=== PATIENT | male | born 1980 | race American Indian/Alaskan Native ===

== ENCOUNTER 2018-09-05 22:28 | Emergency (ER) | payer SELFPAY ==
[2018-09-05 22:31] VITALS: BP 146/84; PULSE 70; RESP 16; TEMP 97.7; O2SAT 100
--- NOTE | 2018-09-05 23:21 | ED PDOC ---
HPI: Psych/Substance Abuse Time Seen by Provider: 09/05/18 22:45 Chief Complaint (Nursing): Alcohol Ingestion Chief Complaint (Provider): Alcohol Ingestion ED Caveat: Intoxicated History Per: Patient History/Exam Limitations: intoxication Modifying Factor(s): Alcohol Additional Complaint(s): 38 y/o male was brought to the ED for alcohol intoxication. Patient was brought by ambulance to the ED for public intoxication. [place] and sleeping and wasn't arousable. Patient admits to drinking. Denies any medical complaints. Past Medical History Reviewed: Historical Data, Nursing Documentation, Vital Signs Vital Signs: Last Vital Signs Temp 97.7 F 09/05/18 22:30 Pulse 70 09/05/18 22:30 Resp 16 09/05/18 22:30 BP 146/84 09/05/18 22:30 Pulse Ox 100 09/05/18 22:30 - Medical History PMH: No Chronic Diseases - Surgical History Surgical History: No Surg Hx - Family History Family History: States: No Known Family Hx - Allergies Allergies/Adverse Reactions: Allergies Allergy/AdvReac Type Severity Reaction Status Date / Time shellfish derived Allergy RASH Verified 09/05/18 22:31 Review of Systems Review Of Systems: ROS cannot be obtained secondary to pt's inabilty to answer questions. (intoxicated) Physical Exam - Reviewed Nursing Documentation Reviewed: Yes Vital Signs Reviewed: Yes - Physical Exam Appears: Positive for: Well, Non-toxic, No Acute Distress Head Exam: Positive for: ATRAUMATIC, NORMAL INSPECTION, NORMOCEPHALIC Skin: Positive for: Normal Color, Warm, DRY Eye Exam: Positive for: Normal appearance, EOMI, PERRL ENT: Positive for: Normal ENT Inspection Neck: Positive for: Normal, Painless ROM Cardiovascular/Chest: Positive for: Regular Rate, Rhythm Respiratory: Negative for: Respiratory Distress Extremity: Positive for: Normal ROM. Negative for: Deformity Neurological/Psych: Positive for: Awake, Alert, Normal Tone, Mood/Affect (intox icated), Gait (unsteady), Other (slurred speech) - ECG O2 Sat by Pulse Oximetry: 100 (RA) Pulse Ox Interpretation: Normal Medical Decision Making Medical Decision Making: Time:23:01 Initial Impression:alcohol intoxication. Will monitor for clinical sobriety Initial Plan: * Alcohol serum 00:00 Patient care endorsed to Dr. Menendez pending clinical sobriety. Scribe Attestation: Documented by Darnell Esquivel, acting as a scribe forDr. Francisca Mcclellan MD. Provider Scribe Attestation: All medical record entries made by the Scribe were at my direction and per sonally dictated by me. I have reviewed the chart and agree that the record accurately reflects my personal performance of the history, physical exam, medical decision making, and the department course for this patient. I have also personally directed, reviewed, and agree with the discharge instructions and disposition. Disposition - Clinical Impression Clinical Impression: Alcohol use - Patient ED Disposition Is Patient to be Admitted: Transfer of Care - Disposition Disposition: Transfer of Care Disposition Time: 00:00 Condition: STABLE Additional Instructions: EARLINE CONWAY, thank you for letting us take care of you today. Your provider was Patrick Menendez MD and you were treated for ETOH. The emergency medical care you received today was directed at your acute symptoms. If you were prescribed any medication, please fill it and take as directed. It may take several days for your symptoms to resolve. Return to the Emergency Department if your symptoms worsen, do not improve, or if you have any other problems. Please contact your doctor or call one of the physicians/clinics you have been referred to that are listed on the Patient Visit Information form that is included in your discharge packet. Bring any paperwork you were given at discharge with you along with any medications you are taking to your follow up visit. Our treatment cannot replace ongoing medical care by a primary care provider outside of the emergency department. Thank you for allowing the [facility] team to be part of your care today. If you had an X-Ray or CT scan: A Radiologist will review the ED reading if any change in treatment is needed we will contact you. If you had a blood, urine, or wound culture: It will take several days for the results, if any change in treatment is needed we will contact you. If you had an STI test: It will take 48 hours for the results. Please call after 1 week if you have not heard back. Instructions: Alcohol Use - When Is Drinking a Problem? Forms: [employer] (Lao) Patient Signed Over To: Patrick Menendez
--- NOTE | 2018-09-06 00:13 | ED PDOC ---
- ECG O2 Sat by Pulse Oximetry: 100 (RA) Pulse Ox Interpretation: Normal Medical Decision Making Medical Decision Making: Time:00:00 Patient care endorsed from Dr. Mcclellan to provider pending clinical sobriety. 00:40 Patient clinically sober for discharge. Diagnosis is alcohol abuse. Scribe Attestation: Documented by Darnell Esquivel, acting as a scribe forDr. Patrick Menendez MD Provider Scribe Attestation: All medical record entries made by the Scribe were at my direction and personally dictated by me. I have reviewed the chart and agree that the record accurately reflects my personal performance of the history, physical exam, medical decision making, and the department course for this patient. I have also personally directed, reviewed, and agree with the discharge instructions and disposition. Disposition - Clinical Impression Clinical Impression: Alcohol use - POA Present On Arrival: None - Disposition Disposition: Routine/Home Disposition Time: 00:40 Condition: IMPROVED Additional Instructions: EARLINE CONWAY, thank you for letting us take care of you today. Your provider was Patrick Menendez MD and you were treated for ETOH. The emergency medical care you received today was directed at your acute symptoms. If you were prescribed any medication, please fill it and take as directed. It may take several days for your symptoms to resolve. Return to the Emergency Department if your symptoms worsen, do not improve, or if you have any other problems. Please contact your doctor or call one of the physicians/clinics you have been referred to that are listed on the Patient Visit Information form that is included in your discharge packet. Bring any paperwork you were given [facility] with you along with any medications you are taking to your follow up visit. Our treatment cannot replace ongoing medical care by a primary care provider outside of the emergency department. Thank you for allowing the [facility] team to be part of your care today. If you had an X-Ray or CT scan: A Radiologist will review the ED reading if any change in treatment is needed we will contact you. If you had a blood, urine, or wound culture: It will take several days for the results, if any change in treatment is needed we will contact you. If you had an STI test: It will take 48 hours for the results. Please call after 1 week if you have not heard back. Instructions: Alcohol Use - When Is Drinking a Problem? Forms: [facility] (German)
== END 2018-09-06 01:03 | disposition home or self-care (01) ==
LOC: H.ER 22:28
DX: F10.129 Alcohol abuse with intoxication, unspecified (principal)